=== PATIENT | male | born 1935 | race Caucasian/White ===

== ENCOUNTER 2019-11-17 06:57 | Day surgery (SDC) | payer MEDICARE, BC ==
[2019-11-11 12:22] LABS: BASOPHILS % (AUTO) 0.9 % (0-1); EOSINOPHILS # (AUTO) 0.1 X10'3 (0-0.9); EOSINOPHILS % (AUTO) 1.8 % (0-6); LYMPHOCYTES # (AUTO) 0.6 X10'3 (1.1-4.8); LYMPHOCYTES % (AUTO) 12.6 % (21-51); MEAN CORPUSCULAR HEMOGLOBIN 34.6 PG (27.0-31.0); MEAN CORPUSCULAR HGB CONC 33.4 g/dL (33.0-36.5); MEAN CORPUSCULAR VOLUME 103.6 FL (78-98); MEAN PLATELET VOLUME 7.5 FL (7.4-10.4); MONOCYTES # (AUTO) 0.4 X10'3 (0-0.9); MONOCYTES % (AUTO) 8.7 % (2-12); NEUTROPHILS # (AUTO) 3.5 X10'3 (1.8-7.7); PRE OP HEMATOCRIT 44.2 % (42.0-52.0); PRE OP HEMOGLOBIN 14.8 g/dL (14.0-17.9); PRE OP PLATELET COUNT 278 X10'3 (140-440); RED BLOOD COUNT 4.27 X10'6 (4.70-6.10); RED CELL DISTRIBUTION WIDTH 14.1 % (11.5-14.5)
[2019-11-11 12:30] LABS: PRE OP PROTIME 10.3 SECONDS (9.0-12.0)
[2019-11-11 12:35] LABS: ALBUMIN 3.6 G/DL (3.4-5.0); ALKALINE PHOSPHATASE 55 IU/L (46-116); BLOOD UREA NITROGEN 22 MG/DL (7-18); BUN/CREATININE RATIO 16.7 (5.4-32.0); CALCIUM 8.9 MG/DL (8.5-10.1); CHLORIDE 106 MMOL/L (99-107); CREATININE 1.32 MG/DL (0.60-1.10); PRE OP ALT 19 U/L (30-65); PRE OP ANION GAP 9 (8-16); PRE OP AST 16 U/L (10-37); PRE OP BILIRUB, TOTAL 0.4 MG/DL (0.0-1.0); PRE OP GLUCOSE 94 MG/DL (70-104); PRE OP POTASSIUM 4.5 MMOL/L (3.4-5.1); PRE OP SODIUM 141 MMOL/L (135-145); TOTAL CARBON DIOXIDE 25.9 MMOL/L (24-32); TOTAL PROTEIN 7.3 G/DL (6.4-8.2); eGFR 52 ML/MIN
[2019-11-17] VITALS (18 sets, daily range): BP systolic 125–168; BP diastolic 64–108
[~2019-11-17] VITALS: Ht 177.8 cm; Wt 75.7 kg
[~2019-11-17 06:57] MED LIST: ASCO500C15 PO; BUPIVAcaine 0.5% W/EPI /PF 30ml vial ONE; CALC-1135 PO; GLUC500C40 PO; LIDOcaine 1% W/epiNEPHrine 1:100,000 20ml vial ONE; UBID200C37 PO; cefTAZidime 1gm inj ONE; cocaine 4% topical solution 4ml bottle ONE; famotidine 20mg tablet PO ONE; methylPREDNISolone acetate 80mg/ml inj**IM only ONE; mupirocin 2% ointment 22GM ONE; oxymetazoline 15 ML nasal spray NS ONE; oxymetazoline 15 ML nasal spray NS SCH; ringers solution, lacted 1,000 ML IV SCH
[2019-11-17] MEDS ORDERED: ringers solution, lacted 1,000 ML IV SCH (07:48)
[2019-11-17] MEDS ORDERED: hydrALAZINE 20mg/ml inj. IV PRN (07:50)
[2019-11-17] MEDS ORDERED: labetalol 20mg/4ml (5mg/ml) syringe IV PRN (07:50)
[2019-11-17] MEDS ORDERED: morphine 4 MG/ML inj SYRINge IV PRN (07:50)
[2019-11-17] MEDS ORDERED: morphine 2 MG/ML inj. syringe IV PRN (07:50)
[2019-11-17] MEDS ORDERED: ondansetron/PF 4mg/2ml inj IV PRN (07:50)
[2019-11-17] MEDS ORDERED: fentaNYL/PF 50MCG/1 ML 2ML syringe IV PRN ×2 (07:50)
[2019-11-17] MEDS ORDERED: ASPI-845 PO (08:00)
[2019-11-17] MEDS ORDERED: dexamethasone sod phosphate 10mg/ml inj ONE (08:56)
[2019-11-17] MEDS ORDERED: sevoflurane 250ml liquid IH ONE (08:56)
[2019-11-17] MEDS ORDERED: fentaNYL/PF 50MCG/1 ML 2ML syringe ONE (08:59)
[2019-11-17] MEDS ORDERED: midazolam 2 mg/2 ml injection ONE (09:00)
[2019-11-17] MEDS ORDERED: LIDOcaine 2% (20mg/ml) 5ml vial ONE (09:12)
[2019-11-17] MEDS ORDERED: propofol inj 20 ML IV ONE (09:12)
[2019-11-17] MEDS ORDERED: ePHEDrine 50MG/ML INJ. ONE (09:18)
[2019-11-17] MEDS ORDERED: ondansetron/PF 4mg/2ml inj ONE (09:24)
[2019-11-17] MEDS ORDERED: morphine 10mg/ml inj. ONE (10:26)
--- NOTE | 2019-11-17 11:00 | NUR ---
Received from OR via BED , accompanied by Anesthesiologist DR CLEMONS and report given by Anesthesiolgist. PATIENT WAKING UP, DENIES PAIN, V/S WNL, CSM INTACT, 20G PIV TO LUE, COTTONOID PACKING TO BILATERALLY SINUSES WITH SCANT ACTIVE DRAINAGE VISIBLE AT THIS TIME D/T PT RUBBING NOSE AND FACE HE WAKES. INSTRUCTED NOT TO TOUCH FACE AT THIS TIME. REINFORCEMENT NEEDED.CSM WNL. PULSES AND SHINGLE BOLT CUTTER WNL
[2019-11-17] MEDS ORDERED: HYDROcodone/acetaminophen 5mg/325mg tablet PO PRN (11:30)
--- NOTE | 2019-11-17 11:30 | NUR ---
NASAL COTTONOIDS REMOVED FROM BOTH NARES. SALINE SPRAY USED TO BOTH NARES AND BACTROBAN OINTMENT APPLIED BOTH NARES WELL. SCANT PINKISH DRAINAGE FROM NARES NOTED. MUSTACHE DRESSING APPLIED
[2019-11-17] MEDS: salt irrigation nasal spray 45 ML SPRAY NS PRN ×2 (11:38→13:19)
--- NOTE | 2019-11-17 12:00 | NUR ---
Report called to receiving nurse AGUILA PEDRAZA. Transferred via BED TO ROOM 347B WITH ALL Belongings. Special Issues communicated to receiving nurse. ALL ORDERS GONE OVER WITH FLOOR NURSE PER DR. PATEL'S REQUEST, SHE VERBALIZED UNDERSTANDING.
--- NOTE | 2019-11-17 12:18 | NUR ---
[facility]OMPAN[facility] BY [employer] COMMUNICATIONS AND SIGNALS SUPERVISOR. PATIENT IS ALERT AND ORIENTED WITH NO S/S OF ACUTE DISTRESS. PATIENT DENIES ANY PAIN OR DISCOMFORT AT THIS TIME. MUSTACHE DRESSING IN PLACE [facility]. PATIENT BP IS 135/[address] PATEL ORDERS TO NOTIFY MD IF PATIENT'S BP IS GREATER THAN 150. CALLED DR PATEL, PER ANSWERING SERVICE, DR PATEL GOING IN TO SURGERY. LEFT MESSAGE WITH ANSWERING SERVICE. AWAITING FOR DR PATEL CALL BACK. Addendum: 11/17/19 at 1336 by Khushboo Marcus RN CORRECTION BP WAS 153/95 NOT 135/95.
--- NOTE | 2019-11-17 12:46 | NUR ---
NO CALL BACK FROM DR PATEL. PATIENT APPEARS TO BE RESTING COMFORTABLY WITH NO COMPLAINTS. PATIENT BP NOW IS 146/88.
[2019-11-17] MEDS: oxymetazoline 15 ML nasal spray NS PRN ×2 (13:19→21:02)
--- NOTE | 2019-11-17 13:30 | NUR ---
NO CALL BACK FROM DR PATEL. PATIENT BP 152/[address] PATEL OFFICE [phone]. WAS INSTRUCTED TO CALL DR PATEL CELL PHONE NUMBER AT [phone]. NO ANSWER. MESSAGE LEFT TO RETURN PHONE CALL. PATIENT REMOVED MUSTACHE GAUZE. GAUZE REAPPLIED. NO BLEEDING AT THIS TIME. PATIENT DENIES ANY COMPLAINTS AND ASSISTED TO BATHROOM. WILL CONTINUE TO MONITOR.
--- NOTE | 2019-11-17 14:17 | NUR ---
DR PATEL RETURNED PHONE CALL. CASSIE TURNER RN SPEAKING TO DR PATEL. PER KEILA MATTHEWS, WHO SPOKE TO DR PATEL NO NEED TO CALL HIM WITH BP >150 UNLESS THERE IS SIGNIFICANT BLEEDING. PATIENT MUSTACHE DRESSING HAS RED DRAINAGE BUT NOT SATURATED. WILL CONTINUE TO MONITOR.
--- NOTE | 2019-11-17 16:24 | NUR ---
Minimal red drainage to mustache dressing but gauze dressing change for patient comfort.
--- NOTE | 2019-11-17 18:18 | NUR ---
Problems reprioritized. Patient report given, questions answered & plan of care reviewed with KEILA GOFF.
--- NOTE | 2019-11-17 18:52 | NUR ---
Patient in room [facility]. I have received report from Gayla carroll and had the opportunity to ask questions and assume patient care.
[2019-11-17] MEDS ORDERED: mupirocin 2% nasal ointment 1gm UD NS SCH (20:00)
[2019-11-17] MEDS ORDERED: GLUCOSAMINE SULFATE 500 MG PO SCH (20:00)
[2019-11-17] MEDS: mupirocin 2% nasal ointment 1gm UD NS SCH (21:06)
[2019-11-18 00:08] VITALS: BP 115/70
[2019-11-18 04:21] VITALS: BP 111/66
--- NOTE | 2019-11-18 06:54 | NUR ---
Patient in room [facility]. I have received report from Hillary PEDRAZA and had the opportunity to ask questions and assume patient care.
--- NOTE | 2019-11-18 06:55 | NUR ---
Problems reprioritized. Patient report given, questions answered & plan of care reviewed with Randy Kate.
[2019-11-18 07:00] VITALS: BP 110/73
[2019-11-18] MEDS: mupirocin 2% nasal ointment 1gm UD NS SCH (07:54)
[2019-11-18] MEDS ORDERED: VITAMIN D3 PO SCH (08:00)
[2019-11-18] MEDS ORDERED: CALCIUM CITRATE PO SCH (08:00)
[2019-11-18] MEDS ORDERED: ascorbic acid 500mg tablet PO SCH (08:00)
[2019-11-18] MEDS ORDERED: UBIDECARENONE PO SCH (08:00)
[2019-11-18] MEDS ORDERED: AFRIN NS (08:29)
[2019-11-18] MEDS ORDERED: SODI104S3 NS (08:29)
[2019-11-18] MEDS ORDERED: MUPI1OIN5 NS (08:29)
--- NOTE | 2019-11-18 09:00 | NUR ---
Discharge instructions given to patient, patient verbalized understanding of all instructions made. Patient's nasal sprays and mupirocin ointment as well as 4x4 gauze sent with patient. Peripheral IV catheter removed, tip intact. Instructed patient to ensure he has all his belongings with him prior to leaving the hospital.
== END 2019-11-18 09:30 | disposition home or self-care (01) ==
LOC: PAS 06:57 → SUR 3N 12:54 → PAS 11-18 09:30
PROVIDERS: ATTEND Otolaryngology
DX: J34.2 Deviated nasal septum (principal); J34.89 Other specified disorders of nose and nasal sinuses; J32.8 Other chronic sinusitis; Z79.899 Other long term (current) drug therapy; Z79.01 Long term (current) use of anticoagulants; Z11.59 Encounter for screening for other viral diseases; Z98.890 Other specified postprocedural states; Z90.5 Acquired absence of kidney
CPT/HCPCS: 30520; 31240; 31255; 31267; 36415; 61782; 70486; 80053; 82948; 85025; 85576; 85610; 85730; 87070; 87075; 87077; 87102; 87186; 87635; 93005; A6402; C9250; C9803; J0713; J1040; J1100; J2001; J2250; J2270; J2405; J2704; J3010; J7040; J7120; A4618; A7000; G0378; J3490